=== PATIENT | female | born 1955 | race Caucasian/White ===

== ENCOUNTER 2018-06-08 10:46 | Day surgery (SDC) | payer BC ==
[~2018-06-08 10:46] MED LIST: ACETAMINOPHEN 1,000 MG/100 ML BTL IV ONE; CEFAZOLIN 2 Gram 2 GM/50 ML BAG IVPB ONE
[2018-06-08] MEDS ORDERED: PROPOFOL 10 MG/ML VIAL IV ONE (10:47)
[2018-06-08] MEDS ORDERED: KETOROLAC 30 MG/ML VIAL IVP ONE (10:47)
[2018-06-08] MEDS ORDERED: MIDAZOLAM HCL 2MG/2ML VIAL IV ONE (10:47)
[2018-06-08] MEDS ORDERED: SEVOFLURANE 250 ML INH ONE (10:47)
[2018-06-08] MEDS ORDERED: LIDOCAINE 2% MDV (20MG/ML) 20ML VIAL IV ONE (10:47)
[2018-06-08] MEDS ORDERED: METHYLPREDNISOLONE 40MG/VIAL IM ONE (10:47)
[2018-06-08] MEDS ORDERED: BUPIVACAINE 0.5% W/EPI MPF 30 ML VIAL IVP ONE (10:47)
[2018-06-08] MEDS ORDERED: ONDANSETRON HCL IV 4 MG/2 ML VIAL IVP ONE (10:47)
[2018-06-08] MEDS ORDERED: FENTANYL PF 100MCG/2ML VIAL IV ONE (10:47)
[2018-06-08] MEDS ORDERED: MORPHINE SULFATE 4 MG/ML VIAL ONE (13:51)
--- NOTE | 2018-06-09 08:20 | Operative Note ---
DATE OF SURGERY: 06/08/2018 PREOPERATIVE DIAGNOSIS: Internal derangement of right knee. POSTOPERATIVE DIAGNOSES: 1. Grade 3 chondromalacia of patella. 2. Moderate synovitis. 3. Large tear of the anterior horn of the lateral meniscus. OPERATION: 1. Right knee arthroscopy with partial lateral meniscectomy. 2. Right knee arthroscopy with limited synovectomy. 3. Debriding arthroscopy with chondroplasty of the patella. Staff Surgeon: Michael Potter MD Anesthesia: General. Preparation: Chloraprep. Individual Considerations: None. PROCEDURE: The patient was taken to the operating room and placed supine on the operating room table. The patient had a successful induction with general anesthetic. The right lower extremity was prepped and draped in the usual fashion. The patient had a superolateral inflow cannula placed. Skin was infiltrated with 0.5% Marcaine with epinephrine prior. A large clear effusion was drained. The knee was inflated with normal saline. An inferomedial and an inferolateral portal were made in a similar fashion. The arthroscope was introduced through the inferolateral portal up into the pouch. Patellofemoral compartment showed moderate synovitis in the pouch but not that much in the gutters. Synovectomy was performed up in the pouch. Grade 3 changes were seen superiorly on the patella, and this was smoothed with a shaver. Notch looked good. Medial compartment structures were well seen and probed and found to be normal. In the notch, the cruciates were normal. Laterally, there was a large unstageable flap of the anterior horn of the lateral meniscus with a stalk anteromedially. This was amputated, debrided back to a stable rim taking most of the anterior horn out. The lateral and posterior horns were intact. The articular cartilage was int. The knee was then irrigated out with saline to remove loose floating debris. Portals were closed with shruti, and 20 mL of 0.5% Marcaine with epinephrine along with 4 mg of morphine and 40 mg of Depo-Medrol were injected into the knee. A sterile bulky compressive dressing was applied. The patient tolerated procedure well. Needle and sponge counts were correct. Estimated blood loss was minimal. She was taken back to recovery in good condition. There were no complications. [facility]
== END 2018-06-08 15:40 | disposition home or self-care (01) ==
LOC: SUR 10:46
PROVIDERS: ATTEND Orthopaedic Surgery
DX: S83.281A Other tear of lateral meniscus, current injury, right knee, initial encounter (principal); M65.9 Synovitis and tenosynovitis, unspecified; M22.41 Chondromalacia patellae, right knee; M06.9 Rheumatoid arthritis, unspecified; K21.9 Gastro-esophageal reflux disease without esophagitis
CPT/HCPCS: 29881; 29875; 01400; J1885; J2405; J3010; J0690; J2270; J1030